=== PATIENT | female | born 2000 | race Caucasian/White ===

== ENCOUNTER 2020-10-05 06:42 | Outpatient (REF) | payer BC, SELFPAY | END 2020-10-05 06:43 | disposition home or self-care (01) | LOC: HO.LAB 06:42 | PROVIDERS: Visit Provider Internal Medicine | DX: Z20.828 Contact with and (suspected) exposure to other viral communicable diseases (principal) | CPT/HCPCS: C9803; U0003 ==

== ENCOUNTER 2025-04-15 15:36 | Outpatient (AMB) | payer OTHER, SELFPAY ==
--- NOTE | 2025-04-15 15:39 | A.OFFPC_ITS ---
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, insurance need to be verify Monomer Purification Operator Required: No Accompanied by: Self / Same As Patient Allergies cat dander Allergy (Mild, Verified 04/15/25 16:19) hives cefprozil [CEFPROZIL] Allergy (Unknown, Verified 04/15/25 16:19) HIVES Medication List - Last Reconciled 04/15/25 by KENTON Griffin No Known Home Meds Tobacco use date assessed: 04/15/25 Dental Screening Dental Screen Date: 04/15/25 Did you have a dental visit in the last 12 months?: Yes Did you have a dental problem in the last 6 months where you did not have access to dental care?: No Was dental information given to patient?: Patient has dentist HPI 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 She denies experiencing any significant symptoms such as chest pain, shortness of breath, abdominal discomfort, or alterations in bowel habits. It has been several years since her last Pap smear, and she currently does not have a hoistman. A systolic murmur was detected upon examination, but there were no past cardiac concerns. Health Maintenance - Referral for a Pap smear - Recommendation to follow up with a chief crna traffic workforce representative - Echocardiogram ordered due to noted sy stolic murmur - Encourage fasting labs in the near fut ure Social History Review of Systems - Cardiovascular: Denies chest pain, varsha rtness of breath. - Gastrointestinal: Denies abdominal cachorro n, constipation, diarrhea. - Gastrointestinal: Denies blood in stoo l. - Urinary: Denies urinary issues. Physical Exam General: Cooperative, healthy appearing, comfortable, no acute distress and well developed Orientation: Patient oriented x3 Limitations: No limitations Head: Normal to inspection Ears: Hearing grossly normal bilaterally Nose: Normal external nose present Face and sinus: Normal facial exam Eyes: Appearance normal, both eyes and all related structures Neck: Normal visual inspection and Yes full ROM Respiratory: Normal respiratory effort and able to speak in complete sentences. Clear to auscultation bilaterally Cardiovascular: Systolic murmur noted on exam. Normal S1 and S2 GI: Normal to inspection. Soft to palpation and nontender Skin: No rashes or lesions noted Neuro: Patient oriented x3 Extremities: Normal to inspection Results Plan An echocardiogram is ordered to assess the systolic murmur. I recommended that the patient follow up with a hoistman for a Pap smear, given the lapse since her last screening. She is encouraged to complete fasting labs soon for a comprehensive health assessment. Discussion Notes I explained to the patient that the systolic murmur noted during the exam cami nts further investigation, hence the ordering of an echocardiogram. I discussed the importance of keeping up with routine Pap smears and advised her to establish care with a hoistman given the time since her last visit. We discussed the benefits of these screenings and monitoring her overall health. She is informed that fasting labs will provide additional important health assessments. I instructed her to return in one year for a follow-up and provided anticipatory guidance regarding her healthcare routine. Patient Instructions - Schedule and complete the echocardiogr am. - Find and visit a hoistman for a Pa p smear. - Complete fasting labs soon. - Return for a follow-up visit in one ye ar. - Seek immediate care if you develop any new symptoms or concerns. [facility] Surgical History S/P wisdom tooth extraction S/P ACL repair Family History Mother CKD (chronic kidney disease) HTN (hypertension) Father No problems noted. Social History Housing: House Alcohol intake: current Alcohol intake frequency: holidays/special occasions only Patient Tobacco Use Status: Never used Tobacco e-Cigarette/Vaping Use: Never Used service: No Current occupational status: employed Current occupation: [employer] - [employer] Current occupational exposures/hazards: No Cognitive needs: No Hearing needs: No Vision needs: No Questionnaire PHQ-9 Over the last 2 weeks, how often have you been bothered by any of the following problems? 1. Little interest or pleasure in doing things: not at all 2. Feeling down, depressed, or hopeless: not at all 3. Trouble falling or staying asleep, or sleeping too much: not at all 4. Feeling tired or having little energy: not at all 5. Poor appetite or overeating: not at all 6. Feeling bad about yourself - or that you are a failure or have let yourself or your family down: not at all 7. Trouble concentrating on things, such as reading the newspaper or watching television: not at all 8. Moving or speaking so slowly that other people could have noticed. Or the opposite - being so fidgety or restless that you have been moving around a lot more than usual: not at all 9. Thoughts that you would be better off or of hurting yourself in some way: not at all Total score: 0 Depression Screening Interpretation: Negative Depression Screening Done: Yes 73389 - PHQ-9 Billing: Yes Source: Developed by Drs. Nacho Perez, Tiffany Duarte, Javier Gage and colleagues, with an educational feliberto from [employer]. Thrive Questionnaire Date Thrive assessed: 04/15/25 I am a: Patient What is your living situation today?: I have a steady place to live Within the past 12 months, did the food you bought not last and you didn't have the money to get more?: Never true Within the past 12 months, did you worry whether your food would run out before you got money to buy more?: Never true Do you have trouble paying for medicines?: No Do you have trouble getting transportation to medical appointments?: No Do you have trouble paying your heating and electricity bill?: No Do you have trouble taking care of your child, family member or friend?: No Do you have trouble with day-to-day activities such as bathing, preparing meals, shopping, managing finances, etc.?: No Are you currently unemployed and looking for a job?: No Are you interested in more education?: No Please select the resources that you would like help with: None Currently or been in a relationship where the following occur: No concerns reported THRIVE Score: 0 AUDIT C Alcohol Use Questionnaire (AUDIT-C) 1. How often do you have a drink containing alcohol?: Monthly or less 2. How many drinks containing alcohol do you have on a typical day when you are drinking?: 1 or 2 3. How often do you have six or more drinks on one occasion?: Never Total Score: 1 Score Reviewed/Action Taken: Yes CHAI-7 AMB Questionnaire CHAI-7 Date CHAI - 7 assessed: 04/15/25 Feeling nervous, anxious, or on edge: 0 = Not at all Not being able to stop or control worryin = Not at all Worrying too much about different things: 0 = Not at all Trouble relaxin = Not at all Being so restless that it is hard to sit still: 0 = Not at all Becoming easily annoyed or irritable: 0 = Not at all Feeling afraid as if something awful might happen: 0 = Not at all Total CHAI-7 score (0-4 normal; 5-9 mild; 10-14 moderate; 15-21 severe): 0 Source: Developed by Drs. Nacho Perez, Tiffany Duarte, Javier Gage and colleagues, with an educational feliberto from [employer]. CHAI-7 Assessment Billing CHAI-7 Assessment Tool: CHAI-7 Assessment 43406 Physical exam (Primary Care) Vital Signs: Last Vital Signs Temp 98.5 F 04/15/25 15:56 Pulse 63 04/15/25 15:56 BP 118/57 L 04/15/25 15:56 Pulse Ox 98 04/15/25 15:56 BMI result Body Mass Index 31.3 Tobacco/Smoking Status: Tobacco use Status Tobacco use date assessed 04/15/25 04/15/25 16:04 Patient Tobacco Use Status Never used Tobacco 04/15/25 16:04 e-Cigarette/Vaping Use Never Used 04/15/25 16:04 PHQ-9: PHQ-9 Score PHQ-9: Total score 0 04/15/25 16:04 Depression Screening Interpretation: Negative Thrive Assessment: Date of Thrive Assessment Date Thrive assessed 04/15/25 04/15/25 16:04 Currently or been in a relationship where the following occur: No concerns reported Coding Level of Care Code New Pt Prev Care 18-39yr(06178 Diagnoses Physical exam Z00.00 Screening for colon cancer Z12.11 Systolic murmur R01.1 Additional Codes CHAI-7 Assessment Billing - CHAI-7 Assessment Tool: CHAI-7 Assessment 63358 ([id number]) PHQ-9 - 99187 - PHQ-9 Billing: Yes ([id number]) Assessment & Plan Assessment & Plan (1) Physical exam: Code(s): Z00.00 - Encounter for general adult medical examination without abnormal findings Category: Medical (2) Screening for colon cancer: Code(s): Z12.11 - Encounter for screening for malignant neoplasm of colon Category: Medical (3) Systolic murmur: Code(s): R01.1 - Cardiac murmur, unspecified Category: Medical Plan . Orders: Orders UA CC w/rflx Micro + Cult Today Z00.00 - Encounter for general adult medical examination without abnormal findings Lipid Panel Today Z00.00 - Encounter for general adult medical examination without abnormal findings Complete Blood Count Auto Diff Today Z00.00 - Encounter for general adult medical examination without abnormal findings Comprehensive [place]. Panel Fast Today Z00.00 - Encounter for general adult medical examination without abnormal findings TSH reflex Free T4 Today Z00.00 - Encounter for general adult medical examination without abnormal findings CA echo transthoracic complete Today R01.1 - Cardiac murmur, unspecified Referrals TRACKLESS TROLLEY DRIVER Referral Z12.11 - Encounter for screening for malignant neoplasm of colon
[2025-04-15 15:56] VITALS: BP 118/57; PULSE 63; TEMP 36.9; O2SAT 98; BMI 31.3
--- OUTSIDE RECORDS SUMMARY | 2025-04-15 16:35 | XMS_ITS ---
Author Organization [facility] Address [address] [place] [address] Care Team Providers Care Core Drill Operator Helper Name Role Phone Dana Scott MD Primary Care Provider Campos Mora [phone] REASON FOR VISIT CX appt Problems No Known Problems Encounters Encounter Location Date Provider Diagnosis [facility] [address] [place] [address] 05/22/2024 Campos Pierre Plan Of Treatment No Information Progress Notes * Kin JOYA: 9 (24 yo F)Acc No.[id number]:05/22/2024 Patient:?Chaya Joya :2000???Age:24 Y???Sex:Female Address:[address] [place] [address] * true * Date:? Generated for Yvonne ward/Dallin/eTransmitting on:?04/15/2025 04:35 PM EDT
--- OUTSIDE RECORDS SUMMARY | 2025-04-15 16:35 | XMS_ITS | Encounter Summary ---
Author Organization [facility] Address [address] [place] [address] Phone Care Team Providers Care Epic Cadence Analyst Name Role Phone Unavailable Primary Care Provider Unavailabl e Encounter Details Date Type Department Care Team (Late st Contact Info) Description 04/17/2017 Documentation [facility] [place] Family Medicine [facility] [place] [id number] Family Medicine, Physician [facility] [place] [address] Social History Tobacco Use Types Packs/Day Years Used Date Smoking Tobacco: Never Comments:Never smoker Comments Unknown Sex and Gender Information Value Date Recorded Sex Assigned at Not on file Legal Sex Female 4:54 PM EDT Gender Identity Not on file Sexual Orientation Not on file documented as of this encounter Plan of Treatment Not on file documented as of this encounter Visit Diagnoses Not on filedocumented in this encounter
--- OUTSIDE RECORDS SUMMARY | 2025-04-15 16:35 | XMS_ITS | Encounter Summary ---
Author Organization [facility] Address [address] [place] [address] Phone Care Team Providers Care Group President Name Role Phone Unavailable Primary Care Provider Unavailabl e Encounter Details Date Type Department Care Team (Late st Contact Info) Description 07/13/2017 Conversion Encounter [facility] - [address] [address] Social History Tobacco Use Types Packs/Day Years [...]
--- OUTSIDE RECORDS SUMMARY | 2025-04-15 16:35 | XMS_ITS | Encounter Summary ---
Author Organization [facility] Address [address] [place] [address] Phone Care Team Providers Care Paperhanger Assistant Name Role Phone Unavailable Primary Care Provider Unavailabl e Reason for Visit * Reason Comments Med Refill Encounter Details Date Type Department Care Team (Late st Contact Info) Description 10/18/2017 Refill [facility] [place] [address] [place] [address] Samara Johnson MD [address] [place] [address] Counseling for control, oral contraceptives Social History Tobacco Use Types Packs/Day Years Used Date Smoking Tobacco: Never Smokeless Tobacco: Never Comments:Never smoker Alcohol Use Standard Drinks/Week Comments No 0 (1 standard drink = 0.6 oz pur e alcohol) Comments Unknown Sex and Gender Information Value Date Recorded Sex Assigned at Not on file Legal Sex Female 4:54 PM EDT Gender Identity Not on file Sexual Orientation Not on file documented as of this encounter Miscellaneous Notes * Telephone Encounter - Jessica Miguel LPN - 10/18/2017 9:36 AM EST Pharm fax refill request OCP. EH documented in this encounter Plan of Treatment Not on file documented as of this encounter Visit Diagnoses Diagnosis Counseling for control, oral contraceptives General counseling for prescription of oral contraceptives documented in this encounter
--- OUTSIDE RECORDS SUMMARY | 2025-04-15 16:35 | XMS_ITS | Patient Health Record ---
Author Organization [facility] Address [address] [place] [address] Care Team Providers Care Replenishment Specialist Name Role Phone Dana Scott MD Primary Care Provider Campos Mora Unavailable [phone] Allergies Allergen (clinical drug ingredient) Drug/Non Drug Allergy documented on EMR Reaction Allergy Type Onset Date Status cefprozil Cefprozil vomit, hives Drug Allergy Acti ve Reason For Referral No Information Medications Medication SIG (Take, Route, Frequency, Duration) Notes Start Date End Date Status Physical Therapy . . . 2-3x/week for 3- 4 weeks 03/21/2024 Not-Taking Nabumetone 750 MG 1 tablet Orally ONCE A DAY WITH FOOD for 30 day(s) 05/02/2024 Active Night Splint AFO - L1930 as directed 03/21/2024 Not-Taking Physical Therapy . . . 2-3x/week for 3- 4 weeks 11/30/2020 Not-Taking Diclofenac Sodium 50 MG 1 tablet Orally Twice a day for 30 day(s) 11/30/2020 Not-Taking Tri-Sprintec 0.18/0.215/0.25 MG-35 MCG 1 tablet Orally Once a day for 28 day(s) Not-Taking Social History Tobacco Use: Social History Observation Description Date Details (start date - stop date) Never Smoker NA - NA Tobacco Use/Smoking Question Answer Notes Are you a: nonsmoker Additional Findings: Tobacco Non-User Aggressive non-smoker Alcohol Screen Question Answer Notes Did you have a drink containing alcohol in the p ast year? Yes Points 0 Interpretation Negative Tobacco use other than smoking: Question Answer Notes Are you an other tobacco user? No Problems No Known Problems Vital Signs Height 5ft5in in 05/02/2024 Weight 190 lbs 05/02/2024 BMI 31.61 kg/m2 05/02/2024 Encounters Encounter Location Date Provider Diagnosis [facility] [address] 05/02/2024 Campos Pierre Plantar fascial fibromatosis M72.2 ; Pain in left foot M79.672 and Pain in right foot M79.[address] [address] 05/02/2024 Campos Pierre [address] [address] 05/22/2024 Campos Pierre Assessments Encounter Date Diagnosis (ICD Code) Assessment Notes Treatment Notes Treatment Clinical Notes Section Notes 05/02/2024 Plantar fascial fibromatosis (ICD-10 - M72.2) 05/02/2024 Pain in left foot (ICD-10 - M79.672) 05/02/2024 Pain in right foot (ICD-10 - M79.671) Plan Of Treatment Pending Test Test Name Order Date X ray : Foot, left 2V 01/21/2013 X ray : Foot, right 2V 01/21/2013 X ray : Foot, left 3V 03/21/2024 X ray : Foot, right 3V 03/21/2024 Insurance Providers Payer Name Payer Address Payer Phone Subscriber Number Group Number Insured Name Patient Relationship to Insured Coverage Start Date Coverage End Date [facility] [address] [place] [address] [phone] [id number] Chaya Joya Self - patient is the insured Medical (General) History Medical History History ICD Code asthma Arthritis Broken bones covid-19 Joint implants/screws Surgical History Surgery Date(Month/Year) ACL MENISCUS RIGHT KNEE 08/2013
--- OUTSIDE RECORDS SUMMARY | 2025-04-15 16:35 | XMS_ITS ---
Author Organization [facility] Address [address] [place] [address] Care Team Providers Care Stove Cleaner Name Role Phone Dana Scott MD Primary Care Provider Campos Mora [phone] REASON FOR VISIT DME Problems No Known Problems Encounters Encounter Location Date Provider Diagnosis [facility] [address] [place] [address] 05/02/2024 Campos Pierre Plan Of Treatment No Information Progress Notes * Chaya JOYADOB: 9 (24 yo F)Acc No.[id number]:05/02/2024 Patient:?Chaya Joya :2000???Age:24 Y???Sex:Female Address:[address] [place] [address] * true * Date:? Generated for Yvonne ward/Dallin/eTransmitting on:?04/15/2025 04:35 PM EDT
--- OUTSIDE RECORDS SUMMARY | 2025-04-15 16:35 | XMS_ITS | Encounter Summary ---
Author Organization [facility] Address [address] [place] [address] Phone Care Team Providers Care Citrus Fruit Packer Name Role Phone Unavailable Primary Care Provider Unavailabl e Encounter Details Date Type Department Care Team (Late st Contact Info) Description 07/18/2017 Documentation [facility] Family Medicine [facility] [place], [place] [phone] Family Medicine, Physician [facility] [place] [address] Social History Tobacco Use Types Packs/Day Years [...]
--- OUTSIDE RECORDS SUMMARY | 2025-04-15 16:35 | XMS_ITS | Encounter Summary ---
Author Organization [facility] Address [address] [place] [address] Phone Care Team Providers Care Band Bias Machine Operator Name Role Phone Unavailable Primary Care Provider Unavailabl e Encounter Details Date Type Department Care Team (Late st Contact Info) Description 09/12/2014 Documentation [facility] [place] [facility] Family Medicine [facility] [place] [address] Family Medicine, Physician [facility] [place] [address] Social History Tobacco Use Types Packs/Day Years Used Date Smoking Tobacco: Never Assessed Comments Unknown Sex and Gender Information Value Date Recorded Sex Assigned at Not on file Legal Sex Female 4:54 PM EDT Gender Identity Not on file Sexual Orientation Not on file documented as of this encounter Plan of Treatment Not on file documented as of this encounter Visit Diagnoses Not on filedocumented in this encounter
--- OUTSIDE RECORDS SUMMARY | 2025-04-15 16:35 | XMS_ITS | Clinical Summary ---
Author Organization [facility] Address [address] [place] [phone] Phone Care Team Providers Care Executive Administrative Assistant Name Role Phone Unavailable Primary Care Provider Unavailabl e Allergies Active Allergy Reactions Criticality Noted Date Comments Cefprozil Hives Medications Tri-Sprintec 0.18/0.215/0.25 MG-35 MCG per tabletIndications: Encounter for surveillance of contraceptive pills TAKE 1 TABLET BY MOUTH DAILY 84 tablet 1 Active Active Problems Problem Noted Date Diagnosed Date Lab test positive for detection of COVID-19 viru s 11/04/2020 Overview (11/04/2020): 10/11/20 - seen for clearance for soccer at [employer]. Sent for EKG Counseling for control, oral contraceptive s 07/29/2017 Resolved Problems Problem Noted Date Diagnosed Date Resolved Date Acne vulgaris 07/31/2018 05/25/2020 Overview (07/31/2018): Followed by Derm - on Clindamycin and Adapalene Immunizations Immunization Administration Dates Next Due DTaP 5 02/12/2003, 1,1999,07/27,1999 H1N1 11/26/2009 HPV Vaccine 9 Valent 08/09/2016,07/21/2015 HPV, Quadrivalent 07/14/2014 Hep A, ped/adol 07/14/2014,06/07/2011 Hep B, ped/adol 1999,1999,1999 Hib (PRP-T) 12/15/2000, 9,1999,04/27 IPV 02/12/2003, 0,1999,04/27 Influenza Split 10/13/2011,10/16/2010 Influenza, injectable, quadr ivalent, preservative free 11/04/2020,11/15/2019,07/29/2017,08/09,07/21/2015 Influenza, injectable, trivalent 11/26/2009 MMR 02/12/2003,02/08/2000 Meningococcal B Trumenba 05/25/2020,07/31/2018 Meningococcal Conj (Menactra) MCV4P 08/09/2016,0 06/02/2010 Pneumococcal Conjugate 02/20/2001,12/15/2000 Td (adult) (MBL), 2 Lf tetan us toxoid, PF, adsorbed 03/06/2018 Tdap 06/02/2010 Varicella 05/16/2008,02/08/2000 Family History Medical History Relation Name Comments Breast cancer Father's Sister Migraines Mother Breast cancer Mother's Sister Diabetes Other 2 both sides ADD / ADHD Sister 1 Asthma Sister 1 ADD / ADHD Sister 2 Asthma Sister 2 Relation Name Status Comments Father Alive Father: Peridon jeannette disease Father's Sister Maternal Grandmother Alive Mother Alive Mother's Sister Other 1 No family histo ry of Dental caries, No family history of Deafness, No family history of Heart disease, No family history of Obesity, Family history of Cancer, breast, No family history of Seizure disorder, No family history of Hyperlipidemia, Family history of Migraines, No family history of CVA (Stroke), No family history of Thrombophilia, No family history of Sudden /CO under age 55, No family history of Developmental dislocation of hip, Family history of Diabetes mellitus Other 2 both sides Alive Paternal Grandmother Alive Sister 1 Alive Sister 2 Alive Social History Tobacco Use Types Packs/Day Years Used Date Smoking Tobacco: Never Smokeless Tobacco: Never Tobacco Cessation:Counseling Given: Yes Comments:Never smoker Alcohol Use Standard Drinks/Week Comments No 0 (1 standard drink = 0.6 oz pur e alcohol) Hunger/Food Answer Date Recorded In the last 12 months, did y ou or your family ever eat less than you felt you should because there wasn't enough money for food? No 05/25/2020 Stable Housing Answer Date Recorded Are you worried that in the next 2 months you may not have stable housing? No 05/25/2020 Transportation Concerns Answer Date Rec orded In the last 12 months, have you or your family ever had to go without healthcare because you didn't have a way to get there? No 05/25/2020 Hazards in Home Answer Date Recorded Think about the place you li ve. Do you have problems with any of the following? Pests (mice or roaches), mold, no/not working smoke detectors, water leaks, no window guards. No 2019 Financing Utilities Answer Date Recorde d In the last 12 months, has t he electric, gas, oil, or water company threatened to shut off your services in your home? No 05/25/2020 Safety at Home Answer Date Recorded Are you or your family worried about feeling saf e in your home? No 05/25/2020 Outside Support Answer Date Recorded Do you feel that you need mo re support from other people or programs to help you care for yourself or your family? No 05/25/2020 Understanding Health Concerns Answer Da te Recorded Do you need help understandi ng your or your child's healthcare needs (diagnosis, medications, plan, etc.)? No 05/25/2020 Financing Health Concerns Answer Date R ecorded In the last 12 months, was t here a time when your child needed to see a doctor or get medications or supplies but could not because of cost? No 05/25/2020 Missing School or Work Answer Date Gerald rded Did you or your child miss s chool or work because of a health problem that could have been avoided? No 05/25/2020 Comments No Sex and Gender Information Value Date Recorded Sex Assigned at Not on file Legal Sex Female 4:54 PM EDT Gender Identity Not on file Sexual Orientation Not on file Last Filed Vital Signs Vital Sign Reading Time Taken Comments Blood Pressure 115/67 11/04/2020 9:25 AM EST Pulse 68 11/04/2020 9:25 AM EST Temperature 36.4 ??C (97.6 ??F) 11/04/2020 9:25 AM ES T Respiratory Rate - - Oxygen Saturation 98% 11/25/2011 12:00 AM EST Inhaled Oxygen Concentration - - Weight 84.4 kg (186 lb) 11/04/2020 9:25 AM EST Height 165.7 cm (5' 5.25 ) 05/25/2020 8:58 AM ED T Body Mass Index 30.72 05/25/2020 8:58 AM EDT Plan of Treatment Health Maintenance Due Date Last Done Comments Influenza Vaccines (#1) 2024 11/04/20, 11/15/2019, 07/29/2017, Additional history exists COVID-19 Vaccine (1 - 2023-2 5 season) 2024 DTaP,Tdap,and Td Vaccines (8 - Td or Tdap) 03/06/2028 03/06/2018, 06/02/2010, 02/12/2003, Additional history exists Hepatitis B Vaccines Completed 1999, 1999, 1999 HIB Vaccines Completed 12/15/2000, 01/1999, 1999, Additional history exists Pneumococcal Vaccine Completed 02/20/2001, 12/15/19 01 IPV Vaccines Completed 02/12/2003, 01/25, 1999, Additional history exists MMR Vaccines Completed 02/12/2003, 02/08/2000 Varicella Vaccines Completed 05/16/2008, 02/08/2000 Hepatitis A Vaccines Completed 07/14/2014, 06/07/20 11 HPV Vaccines Completed 08/09/2016, 06/28, 07/14/2014 Meningococcal Vaccine Completed 08/09/2016, 010 Men B Vaccine Completed 05/25/2020, 07/31/2018 Procedures * Due to [facility] law, this organization might not be sharing sensitive test results. Procedure Name Priority Date/Time Associated Diagnosis Comments CHLAMYDIA AND GONORRHEA, AMPLIFIED Routine 05/25/2020 9:10 AM EDT Screening examination for bacterial and spirochetal disease from Last 3 Months or Most Recently Relevant to Health Maintenance Results * Due to [place] [employer] law, this organization might not be sharing sensitive test results. * Chlamydia and Gonorrhoea, Amplified (05/25/2020 9:10 AM EDT) Chlamydia Trachomatis, DNA Probe NEGATIVE (NEG) [facility] Comment: No Chlamydia Trachomatis RNA detected in this patient's sample ? (REFERENCE RANGE/NORMAL VALUE: NOT DETECTED) ? Note: This test uses chemist biological- mediated amplification method to detect rRNA from C. Trachomatis URINE GC AMP PROBE NEGATIVE (NEG) [facility] Comment: No Neisseria Gonorrhoeae RNA detected in this patient's sample ? (REFERENCE RANGE/NORMAL VALUE: NOT DETECTED) ? NOTE: This test uses chemist biological-mediated amplification method to detect rRNA from N.Gonorrhoeae. A negative result does not preclude infection. In the case of a negative urine result, testing of an endocervical(female) or urethral (male) specimen is recommended if there is high clinical suspicion of infection. Due to very high sensitivity of Nucleic Acid Amplification Test, false positive results may occur. Therefore, specimen handling is extremely important. In patients in whom the disease is unlikely, additional sample for testing should be considered after an initial positive result. The performance characteristics of this test have not been evaluated in children. The Aptima Combo2 assay is not intended for the evaluation of suspected sexual abuse or for other medico-legal indications. The ordering provider should assess if the patient had consensual sex without risk of sexual abuse. Consult the [facility] if needed. Contact phone number . Therapeutic failure or success cannot be determined with the Aptima Combo2 assay since nucleic acid may persist following appropriate antimicrobial therapy. The Centers for Disease Control and Prevention (CDC) recommends confirmatory retesting using culture or a different nucleic acid amplification test when positive results occur, if indicated. Testing performed or reported by [facility], a Service of [facility], [address] [facility] [place] [address] Gautam Mendiola MD, Dbas Urine 05/25/2020 9:10 AM EDT 05/25/2020 8:09 PM EDT us Samara Johnson MD LAB MICROBIOLOGY - GENERAL ORDERABLES Final Result [facility] from Last 3 Months or Most Recently Relevant to Health Maintenance
--- OUTSIDE RECORDS SUMMARY | 2025-04-15 16:36 | XMS_ITS ---
Author Organization [facility] Address [address] [place] [address] Care Team Providers Care Fire Prevention Officer Name Role Phone Dana Scott MD Primary Care Provider Campos Mora [phone] Problems No Known Problems Encounters Encounter Location Date Provider Diagnosis [address] [address] 07/17/2024 Campos Pierre Plan Of Treatment No Information Progress Notes * Chaya JOYADOB: 9 (25 yo F)Acc No.[id number]:07/17/2024 Progress Note Patient:Adrian HARRISina Provider:Sandra Pierre DPM :2000???Age:24 Y???Sex:Female D ate:07/17/2024 Address:[address] [place], [place] [id number] Pcp:Dana Scott MD Subjective: * Chief Complaints: * ??? * Medical History:? Objective: * Vitals:? Assessment: Plan: * Treatment: * Images: * The named appointment provid er may or may not be the originator of this progress note, and it is not deemed complete until electronically signed by the appointment provider. Sign off status: Pending * Provider:Sandra Pierre DPM Date:? 024 Generated for Yvonne ward/Dallin/eTransmitting on:?04/15/2025 04:35 PM EDT
== END 2025-04-15 16:28 | disposition home or self-care (01) ==
LOC: HO.HMCC 15:37
PROVIDERS: PCP Nurse Practitioner Family; Visit Provider Nurse Practitioner Family
DX: Z00.00 Encounter for general adult medical examination without abnormal findings (principal); Z12.11 Encounter for screening for malignant neoplasm of colon; R01.1 Cardiac murmur, unspecified

== ENCOUNTER → 2025-04-15 15:36 | Outpatient (BNVA) | payer OTHER, SELFPAY | PROVIDERS: PCP Nurse Practitioner Family; Visit Provider Nurse Practitioner Family | DX: Z00.00 Encounter for general adult medical examination without abnormal findings (principal); R07.9 Chest pain, unspecified; R06.02 Shortness of breath; R10.9 Unspecified abdominal pain; R01.1 Cardiac murmur, unspecified | CPT/HCPCS: 96127; 99385 ==

== ENCOUNTER 2025-04-23 11:15 | Outpatient (REF) | payer OTHER, SELFPAY ==
[2025-04-23 11:31] LABS: MANUAL DIFF FLAG NO
[2025-04-23 11:52] LABS: Basophils Absolute Auto 0.1 X10*3/uL (0.0-0.2); Basophils Percent Auto 0.6 % (0-2); Eosinophils Absolute Auto 0.3 X10*3/uL (0.0-0.4); Eosinophils Percent Auto 3.2 % (0-4); Hematocrit 41.4 % (37.0-47.0); Hemoglobin 13.8 g/dl (12.0-16.0); Imm Gran Abs Auto 0.02 X10*3/uL (0.00-0.03); Imm Gran Pct Auto 0.3 % (0.0-0.4); Lymphocytes Absolute Auto 2.2 X10*3/uL (1.2-4.9); Lymphocytes Percent Auto 27.8 % (20-40); Mean Corpuscular HGB Conc 33.3 g/dl (31.0-35.0); Mean Corpuscular Hemoglobin 28.5 pg (27.0-33.0); Mean Corpuscular Volume 85.5 fL (80.0-98.0); Mean Platelet Volume 9.2 fL (9.4-12.3); Monocytes Absolute Auto 0.6 X10*3/uL (0.1-1.2); Monocytes Percent Auto 7.7 % (2-11); Neutrophils Absolute Auto 4.8 x10*3/uL (2.0-8.3); Neutrophils Percent Auto 60.4 % (45-73); Platelet Count 370 X10*3/uL (160-400); Red Blood Count 4.84 X10*6/uL (4.20-5.50); Red Cell Distribution Width 12.4 % (11.0-16.0); White Blood Count 7.9 X10*3/uL (4.8-10.8)
--- OUTSIDE RECORDS SUMMARY | 2025-04-23 12:15 | XMS_ITS | Patient Health Record ---
Author Organization [facility] Address [address] [place] [address] Care Team Providers Care Perinatal Tech Name Role Phone Dana Scott MD Primary Care Provider Campos Mora Unavailable [phone] Allergies Allergen (clinical drug ingredient) Drug/Non Drug [...] 05/02/2024 Encounters Encounter Location Date Provider Diagnosis [facility] [address] 05/02/2024 Campos Pierre Plantar fascial fibromatosis M72.2 ; Pain in left foot M79.672 and Pain in right foot M79.[address] [address] 05/02/2024 Campos Pierre [address] [address] 05/22/2024 Campos Pierre Assessments Encounter Date Diagnosis [...] Insured Coverage Start Date Coverage End Date [facility] [address] [place] [address] [phone] [id number] Chaya Joya Self - patient is the insured Medical (General) History Medical History History ICD Code asthma Arthritis Broken bones covid-19 Joint implants/screws Surgical History Surgery Date(Month/Year) ACL MENISCUS RIGHT KNEE 08/2013
[2025-04-23 12:26] LABS: Appearance Urine Cloudy; Color Urine Yellow; Glucose Urine UA Negative (Negative); Leukocyte Esterase Urine Trace (Negative); Nitrite Urine Negative (Negative); PH 7.5 (5.0-9.0); Specific Gravity - Urine >= 1.030 (1.005-1.025); UMIC TRIGGER UACC YES; Urine Blood Negative (Negative); Urine Ketones Trace mg/dL (Negative); Urine Protein Negative (Neg-Trace)
[2025-04-23 13:11] LABS: Alanine Aminotransferase 22 U/L (0-31); Albumin Level 4.5 g/dL (3.5-5.0); Alkaline Phosphatase 65 U/L (39-117); Anion Gap 9 (12-20); Aspartate Amino Transferase 20 U/L (5-31); Bilirubin Total 1.1 mg/dL (0.0-1.0); Blood Urea Nitrogen 15 mg/dL (9-16); Calcium 9.4 mg/dL (8.4-10.2); Carbon Dioxide 29 mmol/L (22-29); Chloride 104 mmol/L (96-108); Cholesterol 160 mg/dL (<200); Estimated Glomerular Filt Rate > 60; Glucose Fasting 95 mg/dL (60-99); HDL Cholesterol 40 mg/dL (>40); LDL Cholesterol Calculated 108 mg/dL (<100); Potassium 4.2 mmol/L (3.3-5.1); Sodium 138 mmol/L (135-145); Total Protein 7.1 g/dL (6.5-8.0); Triglycerides 63 mg/dL (<150)
[2025-04-23 13:13] LABS: Bacteria Urine 3+ (None Seen); Hyaline Casts Urine 0-2 /LPF (0-2); RBC Urine 0-2 /HPF (0-2); WBC Urine 0-5 /HPF (0-5)
[2025-04-23 13:18] LABS: TSH reflex Free T4 0.74 uIU/mL (0.32-4.0)
== END 2025-04-23 11:16 | disposition home or self-care (01) ==
LOC: HO.LAB 11:15
PROVIDERS: PCP Nurse Practitioner Family; Visit Provider Nurse Practitioner Family
DX: Z00.00 Encounter for general adult medical examination without abnormal findings (principal)
CPT/HCPCS: 36415; 80053; 80061; 81001; 81003; 84443; 85025

== ENCOUNTER → 2025-05-14 08:01 | Outpatient (REF) | payer OTHER, SELFPAY ==
--- NOTE | 2025-05-14 08:04 | CA_ITS ---
Transthoracic Echocardiogram Patient (Last, First, Middle): Chaya Joya, Gender: Female Date of : 2000 Age: 25 Procedure Date: 05/14/2025 Procedure Type: Transthoracic Echocardiogram Location: OP Height: 167.64 cm Weight: 86.18 kg BSA: 1.96 m2 Heart Rate: bpm BP: 116 / 70 mmHg Geological Aide: CP/RC Referring MD: Kevin Gold [facility] Emt I/99: Art Morse MD Symptoms: R01.1 - Cardiac murmur, unspecified Study Quality: Adequate ECG Rhythm: Sinus Conclusions: - Normal study Findings Left Ventricle Normal left ventricular size, thickness, and systolic function. The visually estimated ejection fraction is between 60-65%. Spectral Doppler is indicative of a normal filling pattern. Right Ventricle Normal right ventricular cavity size and systolic function. Atria Both atria are normal in size. There is no evidence of interatrial shunt. Aortic Valve Normal aortic valve structure and function. There is no aortic valve stenosis. There is no aortic valve regurgitation. Mitral Valve Normal mitral valve structure and function. There is trace mitral valve regurgitation. There is no mitral valve stenosis. Pulmonic Valve The pulmonic valve is likely normal. Tricuspid Valve Normal tricuspid valve structure. There is trace tricuspid valve regurgitation. The right ventricular systolic pressure is normal. The right ventricular systolic pressure is 12 mmHg. Normal right atrial pressure. There is no evidence of pulmonary hypertension. Great Vessels All visible segments of the aorta are normal in size. The pulmonary artery was not well visualized. Venous The inferior vena cava is normal in size and collapses greater than 50% with inspiration. Pericardium/Pleural There is no evidence of pericardial effusion. Prior Study Comparison No prior study available for comparison. Measurements 2D Linear Measurements IVSd: 1.04 0.6-0.9/0.6-1.0 cm LVIDd: 4.16 3.9-5.3/4.2-5.9 cm LVIDd Index: 2.12 2.4-3.2/2.2-3.1 cm/m2 LVIDs: 2.69 2.0-3.6 cm LVPWd: 0.74 0.7-1.1 cm LA Diam: 3.50 2.7-3.8/3.0-4.0 cm LAIDs Index: 1.79 1.5-2.3 cm/m2 LV Mass: 143.32 67-162/88-224 g LV Mass Index: 73.12 43-95/49-115 g/m2 LVOT Diam: 2.00 3.0+(-)1.3 cm 2D Systolic Function EF 4C: 61.00 >55% EF 2C: 69.40 >55% EF BiP: 64.10 >55% Mitral Valve MV Pk E: 1.00 MV PK A: 0.71 MV Decel Time: 202.00 E/A: 1.40 E'Lateral: 14.70 E'Medial: 9.68 E/E' Med: 10.30 E/E' Lat: 6.80 PHT: 59.00 MVA PHT: 3.73 Decel Brule: 4.97 Aortic Valve AoV Pk Antonio: 1.36 AoV Mn Antonio: 0.92 AoV VTI: 0.33 AoV Pk Grad: 7.00 Aov Mn Grad: 4.00 ETHAN Cont.VTI: 2.31 LVOT LVOT Pk Antonio: 1.23 LVOT Mn Antonio: 0.74 LVOT VTI: 0.24 LVOT Pk Grad: 6.00 LVOT Mn Grad: 3.00 LVOT Diam: 2.00 LVOT Area: 3.14 Diastolic Function MV Pk E: 1.00 MV Pk A: 0.71 E/A: 1.40 E'Medial: 9.68 E/E' Med: 10.30 E' Laterial: 14.70 E/E' Lat: 6.80 Right Ventricle TAPSE (mm): 24.40 TVS' Antonio: 12.20 Tricuspid Valve TR Pk Antonio: 1.52 TR Pk Grad: 9.00 RA Press: 3.00 RVSP: 12.00 Great Vessels Aorta Sinus of Valsalva: 2.50 2.0-3.5 cm Ao Asc: 2.30 2.1-3.4 cm Ao Arch: 2.00 Updated in Other Vendor System with Status of Final Art Morse MD electronically signed on 05/14/2025 1:41:49 PM with status of Final
--- OUTSIDE RECORDS SUMMARY | 2025-05-14 08:13 | XMS_ITS | Patient Health Record ---
Author Organization [facility] Address [address] [place] [address] Care Team Providers Care Power Generation Turbine Room Operator Name Role Phone Dana Scott MD Primary Care Provider Campos Mora Unavailable [phone] Allergies Allergen (clinical drug ingredient) Drug/Non Drug [...] tobacco user? No Problems No Known Problems Encounters Encounter Location Date Provider Diagnosis [facility] [address] [place] [address] 05/22/2024 Campos Pierre Plan Of Treatment Pending Test Test Name Order Date X ray : Foot, left 2V 01/21/2013 X ray : Foot, right 2V 01/21/2013 X ray : Foot, left 3V 03/21/2024 X ray : Foot, right 3V 03/21/2024 Insurance Providers Payer Name Payer Address Payer Phone Subscriber Number Group Number Insured Name Patient Relationship to Insured Coverage Start Date Coverage End Date [facility] [address] [place] [address] [phone] [id number] Chaya Joya Self - patient is the insured Medical (General) History Medical History History ICD Code asthma Arthritis Broken bones covid-19 Joint implants/screws Surgical History Surgery Date(Month/Year) ACL MENISCUS RIGHT KNEE 08/2013
== END ==
LOC: HO.CARD 08:01
PROVIDERS: PCP Nurse Practitioner Family; Visit Provider Nurse Practitioner Family
DX: R01.1 Cardiac murmur, unspecified (principal)
CPT/HCPCS: 93306

== ENCOUNTER → 2025-05-14 08:04 | Outpatient (BNV) | payer OTHER, SELFPAY | PROVIDERS: PCP Nurse Practitioner Family; Visit Provider Internal Medicine Cardiovascular Disease | DX: R01.1 Cardiac murmur, unspecified (principal) | CPT/HCPCS: 93306 ==

== ENCOUNTER 2025-09-01 08:47 | Outpatient (AMB) | payer OTHER, SELFPAY ==
--- OUTSIDE RECORDS SUMMARY | 2024-07-17 04:00 | XMS_ITS ---
Author Organization [facility] Address [address] [place] [address] Care Team Providers Care Call Center Director Name Role Phone Dana Scott MD Primary Care Provider Campos Fregoso [phone] Problems No Known Problems Encounters Encounter Location Date Provider Diagnosis [address] [address] 07/17/2024 Campos Farmer Plan Of Treatment No Information Progress Notes * Chaya JOYADOB: 9 (25 yo F)Acc No.[id number]:07/17/2024 Progress Note Patient: Adrian LANDRUMina Provider: Valeriy Pierre DPM :2000 A ge:24 Y S ex:Female Date:07/17/2024 Address:[address] [place], [place] [id number] Pcp:Dana Scott MD Subjective: * Chief Complaints: [...] 07/17/2024 Generated for Yvonne ward/Dallin/eTransmitting on: 1 09:33 AM EDT
[2025-09-01 09:02] VITALS: BP 110/66; BMI 30.7
--- NOTE | 2025-09-01 09:02 | MHC.OFFVIS ---
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 She had 1 director of assisted living visit at [facility] some years ago and had a Pap smear there she has no director of assisted living concerns. She is not sexually active she gets regular periods every 28 days and she tracks them on an boubacar she likes knowing where she is in her cycle. She uses tampons for menstrual care only the 1st day is uncomfortable and she uses ibuprofen as needed. 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 She does regular exercise and weights and hot yoga for exercise. If she is sexually active she uses condoms the last time she was active was last January but she would like checks just in case she recently had her annual with her primary care provider and everything was fine and all her blood work was good and she had an echocardiogram because of a heart murmur and everything checked out good. She has a family history of breast cancer aunts on both her mother side and father side have had breast cancer and she has already had genetic screening and a discussion about when to start mammograms and the recommendation was to start at age 39 and her genetic screening turned out fine. She eats healthy and takes care of herself. [facility] Surgical History S/P wisdom tooth extraction S/P ACL repair Family History (Updated 09/01/25 @ 09:04 by AMY Mcpherson) Mother CKD (chronic kidney disease) HTN (hypertension) Father No problems noted. Maternal Aunt History of breast cancer Paternal Aunt History of breast cancer Paternal Aunt History of breast cancer Paternal Aunt History of breast cancer Social History Housing: House Alcohol intake: current Alcohol intake frequency: holidays/special occasions only Patient Tobacco Use Status: Never used Tobacco e-Cigarette/Vaping Use: Never Used service: No Current occupational status: employed Current occupation: [employer] - [employer] Current occupational exposures/hazards: No Cognitive needs: No Hearing needs: No Vision needs: No Female Reproductive History Menstrual Age of Menarche: 11 Duration of menses: 3-5 days Date of last menstrual period: 08/24/25 control method: none Total pregnancies: 0 Physical Exam Vital Signs: Last Vital Signs BP 110/66 09/01/25 09:02 BMI result Body Mass Index 30.7 Const General: healthy appearing, comfortable, no acute distress, well developed and alert Nutritional Appearance: average body habitus Orientation/consciousness: patient oriented x3 Limitations: no limitations HEENT Head: Yes normocephalic Neck Neck: Yes normal visual inspection Chest Chest palpation & inspection: normal inspection of the chest Breast/axilla inspection: normal inspection of the breasts and normal inspection of the axillae Breast/axilla palpation: normal palpation of the breasts and normal palpation of the axillae Resp Effort & Inspection: normal respiratory effort GI Inspection: Yes normal to inspection, No Abdominal wall edema and No distended Palpation (GI): Soft to palpation and nontender Other: External exam within normal limits vagina is pink and moist very clear scant mucus nulliparous pink cervix healthy mobile long close thick nontender uterus midposition to anteverted minimally palpable but not enlarged and nontender adnexa nonenlarged nontender very good tone with Kegel. Pap smear done as well as testing for gonorrhea chlamydia trichomoniasis bacterial vaginosis and yeast. General: Yes bladder normal to palpation External Female Exam: normal external appearance and normal appearance of the urethra Speculum Exam - Vagina: normal appearance of the vagina, normal palpation and normal vaginal discharge Speculum Exam - Cervix: normal appearance of the cervix, normal palpation and nontender Bimanual exam- vagina & uterus: normal bimanual exam, normal palpation, uterine size normal, bladder normal to palpation, consistency normal, normal palpation, uterine mobility normal, uterine shape normal, No Cervical tenderness present, non-tender and no cervical motion tenderness Bimanual Exam- Adnexa, other: normal adnexae, no masses, normal and No adnexal tenderness Neuro General: patient oriented x3 Assessment & Plan Assessment & Plan (1) Family history of breast cancer: Comment: Maternal and paternal aunts. Patient has had genetic screening which turned out negative. Says she was told to start mammograms at age 39. BSE discussed. Code(s): Z80.3 - Family history of malignant neoplasm of breast Category: Medical (2) Encounter for screening examination for sexually transmitted disease: Code(s): Z11.3 - Encounter for screening for infections with a predominantly sexual mode of transmission Category: Medical (3) Screening for malignant neoplasm of cervix: Code(s): Z12.4 - Encounter for screening for malignant neoplasm of cervix Category: Medical (4) Family planning counseling: Comment: Use.s condoms, is in good health Code(s): Z30.09 - Encounter for other general counseling and advice on contraception Category: Medical (5) Well woman exam with routine gynecological exam: Code(s): Z01.419 - Encounter for gynecological examination (general) (routine) without abnormal findings Category: Medical Plan -----Discussed in this visit the following: healthy balanced diet, regular and consistent exercise, getting recommended health screens, doing the best she can for her particular health concerns, kegel exercises, pap smear screening and followup recommendations, mammography screening and SBE, normal changes in cycles in her life stage--- .This note is constructed using voice recognition software. While every effort has been made to ensure accuracy, engineering coordinator errors may have been included. Reviewed her personal history and family history she is doing very well with excellent self-care with diet and exercise. She uses condoms when she is active she is aware of her cycle she has had negative screening for her heart murmur she had negative genetic screening because of her family history of breast cancer she has no additional concerns at this time we will see her in 1 year or sooner if necessary. Orders: Orders Bacterial Vaginosis Panel Today Z20.2 - Contact with and (suspected) exposure to infections with a predominantly sexual mode of transmission Pap Smear Today Z01.419 - Encounter for gynecological examination (general) (routine) without abnormal findings CT NG by PCR Vag/Cerv Today Z20.2 - Contact with and (suspected) exposure to infections with a predominantly sexual mode of transmission Coding Level of Care Code New Pt Prev Care 18-39yr([id number] Diagnoses Family history of breast cancer Z80.3 Encounter for screening examination for sexually transmitted disease Z11.3 Screening for malignant neoplasm of cervix Z12.4 Family planning counseling Z30.09 Well woman exam with routine gynecological exam Z01.419
--- OUTSIDE RECORDS SUMMARY | 2025-09-01 09:33 | XMS_ITS | Encounter Summary ---
Author Organization [facility] Address [address] [place] [address] Phone Care Team Providers Care Panama Hat Hydraulic Press Operator Name Role Phone Unavailable Primary Care Provider Unavailabl e Encounter Details Date Type Department Care Team (Late st Contact Info) Description 07/18/2017 Documentation [facility] [place] [facility] [place], [place] [id number] Family Medicine, Physician [facility] [place] [address] Social History Tobacco Use Types Packs/Day Years [...]
--- OUTSIDE RECORDS SUMMARY | 2025-09-01 09:33 | XMS_ITS | Encounter Summary ---
Author Organization [facility] Address [address] [place] [address] Phone Care Team Providers Care Sider Name Role Phone Unavailable Primary Care Provider Unavailabl e Encounter Details Date Type Department Care Team (Late st Contact Info) Description 04/17/2017 Documentation [facility] [place] [facility] [place], [place] [id number] Family Medicine, [place] [address] Social History Tobacco Use Types Packs/Day Years [...]
--- OUTSIDE RECORDS SUMMARY | 2025-09-01 09:33 | XMS_ITS | Encounter Summary ---
Author Organization [facility] Address [address] [place] [address] Phone Care Team Providers Care Leather Toggler Name Role Phone Unavailable Primary Care Provider Unavailabl e Encounter Details Date Type Department Care Team (Late st Contact Info) Description 07/13/2017 Conversion Encounter [facility] - [address] [address] Social History Tobacco Use Types Packs/Day Years [...]
--- OUTSIDE RECORDS SUMMARY | 2025-09-01 09:33 | XMS_ITS | Patient Health Record ---
[facility] Organization [facility] Address [address] [place] [address] Care Team Providers Care Journal Clerk Name Role Phone Dana Scott MD Primary Care Provider Campos Fregoso Unavailable [phone] Allergies Allergen (clinical drug ingredient) Drug/Non Drug Allergy documented on EMR Reaction Allergy Type Onset Date Status cefprozil Cefprozil vomit, hives Drug Allergy Acti ve Reason For Referral No Information Medications Medication SIG (Take, Route, Frequency, Duration) Notes Start Date End Date Status Physical Therapy . . . 2-3x/week; Durat ion: 3-4 weeks 03/21/2024 Not-Taking Nabumetone 750 MG 1 tablet Orally ONCE A DAY WITH FOOD; Duration: 30 day(s) 05/02/2024 Active Night Splint AFO - L1930 as directed 03/21/2024 Not-Taking Physical Therapy . . . 2-3x/week; Durat ion: 3-4 weeks 11/30/2020 Not-Taking Diclofenac Sodium 50 MG 1 tablet Orally Twice a day; Duration: 30 day(s) 11/30/2020 Not-Bon ing Tri-Sprintec 0.18/0.215/0.25 MG-35 MCG 1 tablet Orally Once a day; Duration: 28 day(s) Not-Bon ing Social History Tobacco Use: Social History Observation [...] tobacco user? No Problems No Known Problems Plan Of Treatment Pending Test Test Name Order Date X ray : Foot, left 2V 01/21/2013 X ray : Foot, right 2V 01/21/2013 X ray : Foot, left 3V 03/21/2024 X ray : Foot, right 3V 03/21/2024 Insurance Providers Payer Name Payer Address Payer Phone Subscriber Number Group Number Insured Name Patient Relationship to Insured Coverage Start Date Coverage End Date [facility] [address] [place] [address] [phone] [id number] Chaya Joya Self - patient is the insured Medical (General) History Medical History History ICD Code asthma Arthritis Broken bones covid-19 Joint implants/screws Surgical History Surgery Date(Month/Year) ACL MENISCUS RIGHT KNEE 08/2013
--- OUTSIDE RECORDS SUMMARY | 2025-09-01 09:33 | XMS_ITS | Clinical Summary ---
Author Organization [facility] Address [address] [place] [address] Phone Care Team Providers Care Campus Rep Name Role Phone Unavailable Primary Care Provider [...] - seen for clearance for soccer at [employer]. Sent for EKG Counseling for control, oral [...] 68 11/04/2020 9:25 AM EST Temperature 36.4 C (97.6 F) 11/04/2020 9:25 AM EST Respiratory Rate - - Oxygen Saturation 98% 11/25/2011 12:00 AM EST Inhaled Oxygen Concentration - - Weight 84.4 kg (186 lb) 11/04/2020 9:25 AM EST Height 165.7 cm (5' 5.25 ) 05/25/2020 8:58 AM ED T Body Mass Index 30.72 05/25/2020 8:58 AM EDT Plan of Treatment Health Maintenance Due Date Last Done Comments Influenza Vaccines (#1) 2025 11/04/20, 11/15/2019, 07/29/2017, Additional history exists COVID-19 Vaccine (2024-2 6 season) 2025 DTaP,Tdap,and Td Vaccines (8 - Td or Tdap) 03/06/2028 03/06/2018, 06/02/2010, 02/12/2003, Additional history exists Hepatitis B Vaccines Completed 1999, 1999, 1999 HIB Vaccines Completed 12/15/2000, /0 01/1999, 1999, Additional history exists Pneumococcal Vaccine Completed 02/20/2001, 12/15/19 IPV Vaccines Completed 02/12/2003, 01/25, 1999, Additional history exists MMR Vaccines Completed 02/12/2003, 02/08/2000 Varicella Vaccines Completed 05/16/2008, 02/08/2000 Hepatitis A Vaccines Completed 07/14/2014, 06/07/20 11 HPV Vaccines Completed 08/09/2016, 06/28, 07/14/2014 Meningococcal Vaccine Completed 08/09/2016, 010 Men B Vaccine Completed 05/25/2020, 07/31/2018 Procedures * Due to [place] [employer] law, this organization might not be sharing sensitive test results. Procedure Name Priority Date/Time Associated Diagnosis Comments CHLAMYDIA AND GONORRHEA, AMPLIFIED Routine 05/25/2020 9:10 AM EDT Screening examination for bacterial and spirochetal disease from Last 3 Months or Most Recently Relevant to Health Maintenance Results * Due to [facility] law, this organization might not be sharing sensitive test results. * Chlamydia and Gonorrhoea, Amplified (05/25/2020 9:10 AM EDT) Chlamydia Trachomatis, DNA Probe NEGATIVE (NEG) [facility] Comment: No Chlamydia Trachomatis RNA detected in this patient's sample (REFERENCE RANGE/NORMAL VALUE: NOT DETECTED) Note: This test uses water manager- mediated amplification method to detect rRNA from C. Trachomatis URINE GC AMP PROBE NEGATIVE (NEG) [facility] Comment: No Neisseria Gonorrhoeae RNA detected in this patient's sample (REFERENCE RANGE/NORMAL VALUE: NOT DETECTED) NOTE: This test uses water manager-mediated amplification method to detect rRNA from N.Gonorrhoeae. [...] without risk of sexual abuse. Consult the [facility] if needed. Contact phone number . Therapeutic failure or success cannot be determined with the Aptima Combo2 assay since nucleic acid may persist following appropriate antimicrobial therapy. The Centers for Disease Control and Prevention (CDC) recommends confirmatory retesting using culture or a different nucleic acid amplification test when positive results occur, if indicated. Testing performed or reported by [facility], a Service of [facility], [facility] [place] [address] Gautam Mendiola MD, Cra Officer Urine 05/25/2020 9:10 AM EDT 05/25/2020 8:09 PM EDT us Samara Johnson MD LAB MICROBIOLOGY - GENERAL ORDERABLES Final Result [facility] from Last 3 Months or Most Recently Relevant to Health Maintenance
--- OUTSIDE RECORDS SUMMARY | 2025-09-01 09:33 | XMS_ITS | Encounter Summary ---
Author Organization [facility] Address [address] [place] [address] Phone Care Team Providers Care Dry Paste Supervisor Name Role Phone Unavailable Primary Care Provider Unavailabl e Reason for Visit * Reason Comments Med Refill Encounter Details Date Type Department Care Team (Late st Contact Info) Description 10/18/2017 Refill [facility] [place] [address] [place] [address] Samara Johnson MD [address] [place] [address] Counseling for control, oral contraceptives Social History [...]
--- OUTSIDE RECORDS SUMMARY | 2025-09-01 09:33 | XMS_ITS | Encounter Summary ---
Author Organization [facility] Address [address] [place] [address] Phone Care Team Providers Care Marketing Community Liaison Name Role Phone Unavailable Primary Care Provider Unavailabl e Encounter Details Date Type Department Care Team (Late st Contact Info) Description 09/12/2014 Documentation [facility] [place] [facility] [place] [address] Family Medicine, Physician [facility] [place] [address] Social History Tobacco Use Types Packs/Day Years [...]
== END 2025-09-01 09:49 | disposition home or self-care (01) ==
LOC: HO.HWS 08:47
PROVIDERS: PCP Nurse Practitioner Family; Visit Provider Advanced Practice Midwife
DX: Z01.419 Encounter for gynecological examination (general) (routine) without abnormal findings (principal); Z80.3 Family history of malignant neoplasm of breast; Z11.3 Encounter for screening for infections with a predominantly sexual mode of transmission; Z12.4 Encounter for screening for malignant neoplasm of cervix; Z30.09 Encounter for other general counseling and advice on contraception
CPT/HCPCS: 99385; 99459

== ENCOUNTER 2025-09-01 08:47 | Outpatient (REF) | payer OTHER, SELFPAY ==
[2025-09-01 17:10] LABS: CT PCR NOT DETECTED (Not Detect.); NG PCR NOT DETECTED (Not Detect.)
[2025-09-01 17:16] LABS: Bacterial Vaginosis PCR POSITIVE (Negative); Candida Group PCR NOT DETECTED (Not Detect); Candida glab krusei PCR NOT DETECTED (Not Detect); Trichomonas vaginalis PCR NOT DETECTED (Not Detect)
== END 2025-09-01 08:48 | disposition home or self-care (01) ==
LOC: HO.LAB 08:47
PROVIDERS: PCP Nurse Practitioner Family; Visit Provider Advanced Practice Midwife
DX: Z01.419 Encounter for gynecological examination (general) (routine) without abnormal findings (principal); Z30.09 Encounter for other general counseling and advice on contraception; Z20.2 Contact with and (suspected) exposure to infections with a predominantly sexual mode of transmission; Z80.3 Family history of malignant neoplasm of breast
CPT/HCPCS: 81515; 87491; 87591; 99385

== ENCOUNTER 2025-09-01 09:40 | Outpatient (REF) | payer OTHER, SELFPAY | END 2025-09-01 09:41 | disposition home or self-care (01) | LOC: HO.LNP 09:40 | PROVIDERS: Visit Provider Advanced Practice Midwife | DX: Z01.419 Encounter for gynecological examination (general) (routine) without abnormal findings (principal); Z20.2 Contact with and (suspected) exposure to infections with a predominantly sexual mode of transmission | CPT/HCPCS: 88175 ==

== ENCOUNTER 2025-10-15 08:06 | Outpatient (REF) | payer OTHER, SELFPAY | END 2025-10-15 08:07 | disposition home or self-care (01) | LOC: HO.LNP 08:06 | PROVIDERS: PCP Nurse Practitioner Family; Visit Provider Obstetrics & Gynecology | DX: R87.612 Low grade squamous intraepithelial lesion on cytologic smear of cervix (LGSIL) (principal) | CPT/HCPCS: 57454; 88305; 88341; 88342 ==

== ENCOUNTER 2025-10-15 08:06 | Outpatient (AMB) | payer OTHER, SELFPAY ==
--- OUTSIDE RECORDS SUMMARY | 2024-07-17 03:00 | XMS_ITS ---
Author Organization [facility] Address [address] [place] [address] Care Team Providers Care Event Planner Name Role Phone Dana Scott MD Primary Care Provider Campos Fregoso [phone] Problems No Known Problems Encounters Encounter Location Date Provider Diagnosis [address] [address] 07/17/2024 Campos Farmer Plan Of Treatment No Information Progress Notes * Chaya JOYADOB: 9 (25 yo F)Acc No.[id number]:07/17/2024 Progress Note Patient: Adrian LANDRUMina Provider: Valeriy Pierre DPM :2000 A ge:24 Y S ex:Female Date:07/17/2024 Address:[address] [place], [place] [id number] Pcp:Daan Scott MD Subjective: * Chief Complaints: * * Medical History: Objective: * Vitals: Assessment: Plan: * Treatment: * Images: * The named appointment provid er may or may not be the originator of this progress note, and it is not deemed complete until electronically signed by the appointment provider. Sign off status: Pending * Provider: Valeriy Pierre DPM Date: 0 07/17/2024 Generated for Yvonne ward/Dallin/eTransmitting on: 12/15/2024 03:35 PM EST
--- NOTE | 2025-10-15 08:11 | MHC.OFFVIS ---
Vital Signs 10/15/25 08:13 Height 5 ft 6 in Weight 190 lb BMI 30.7 Intake Visit Reasons: Colposcopy Contact Center Assistant Required: No Information Interpreted: non-clinical & clinical Heel Coverer: Heel Coverer Present (Tricia REYES) Accompanied by: Self / Same As Patient Allergies cat dander Allergy (Mild, Verified 10/15/25 08:13) hives cefprozil (CEFPROZIL) Allergy (Unknown, Verified 10/15/25 08:13) HIVES Is last menstrual period known: Yes Last menstrual period: 09/19/25 HPI Comments Details: Presenting with abnormal Pap smear showing the following: General Category: Epithelial cell abnormality. Adequacy: Endocervical component present. Interpretation: Low grade squamous intraepithelial lesion (LSIL). Shift in vaginal keyla. HPV High Risk: Positive HPV Genotyping 16: Negative HPV Genotyping 18: Negative [facility], [facility] Surgical History S/P wisdom tooth extraction S/P ACL repair Family History Mother CKD (chronic kidney disease) HTN (hypertension) Father No problems noted. Maternal Aunt History of breast cancer Paternal Aunt History of breast cancer Paternal Aunt History of breast cancer Paternal Aunt History of breast cancer Social History Housing: House Alcohol intake: current Alcohol intake frequency: holidays/special occasions only Patient Tobacco Use Status: Never used Tobacco e-Cigarette/Vaping Use: Never Used service: No Current occupational status: employed Current occupation: [employer] - [employer] Current occupational exposures/hazards: No Cognitive needs: No Hearing needs: No Vision needs: No Female Reproductive History Menstrual Age of Menarche: 11 Date of last menstrual period: 09/19/25 Review of Systems Const All systems reviewed & are unremarkable except as noted in HPI and below Reports as per HPI and Reports no additional complaints GI Reports no additional complaints Reports no additional complaints Physical Exam Vital Signs: BMI result Body Mass Index 30.7 Office Procedures Colposcopy Colposcopy: Pre-Procedure Counseling: Before beginning the procedure, I conducted comprehensive counseling with the patient. We thoroughly discussed the procedure itself, including its details, alternatives, and all associated risks. This included but not limited to the following complications such as bleeding, infection, and injury to the vagina, bladder, and vessels, as well as the potential need for transfusion with all its associated risks. Subsequently, the patient sign the consent. Pap smear result: LSIL/HPV positive Urine test in office = Negative Procedure: During the procedure, the following steps were performed: A speculum was inserted, and acetic acid was applied. Colposcopy was conducted, allowing visualization of the transformation zone. Acetowhite lesions were identified at the 6+ 11+ 12+ 3 o'clock position. Cervical biopsies were obtained from the 6+ 11+ 12+ 3 o'clock position, followed by an endocervical curettage (ECC). Vaginoscopy of the upper vagina revealed no evidence of aceto-white lesions. Hemostasis was achieved using Monsel solution, and the patient tolerated the procedure well. Post-Procedure Instructions: The patient was advised to promptly contact the office or the after hours answering service or go to the emergency room if experiencing a temperature exceeding 100.4?F, abdominal pain, nausea/vomiting, or bleeding. Additionally, the patient was instructed to abstain from vaginal intercourse and bathtub use. The patient confirmed understanding of these instructions. Discharge Instructions: The patient was instructed to schedule a follow-up appointment in 2 weeks for further evaluation and management. Please note that this note was generated using a voice recognition program, and errors may have occurred during adjunct psychology instructor. [id number] of cervix including upper vagina with biopsy and ECC Procedure code (CPT) selection complete Assessment & Plan Assessment & Plan (1) LGSIL on Pap smear of cervix: Comment: HPV positive Code(s): R87.612 - Low grade squamous intraepithelial lesion on cytologic smear of cervix (LGSIL) Category: Medical Plan: Discussed with the patient the result of her abnormal pap, its significance, risk of progression, persistence, and regression. the false positive/negative rate of a Pap smear as a screening test in detecting cervical cancer and the indication for a diagnostic test -colposcopy, biopsy, endocervical curettage. The patient verbalized understanding and agreed with the plan, all questions answered. Colposcopy, biopsy /ECC done, see procedure note Orders: Orders AMB Colposcopy Today R87.612 - Low grade squamous intraepithelial lesion on cytologic smear of cervix (LGSIL) Coding Level of Care Code Procedure Only Diagnoses LGSIL on Pap smear of cervix R87.612 CPT Codes Colposcopy - CPT: 03900-Hysvittkg of cervix including upper vagina with biopsy and ECC ([id number])
[2025-10-15 08:13] VITALS: BMI 30.7
--- OUTSIDE RECORDS SUMMARY | 2025-10-15 15:36 | XMS_ITS | Encounter Summary ---
Author Organization [facility] Address [address] [place] [address] Phone Care Team Providers Care Banquet Set Up Person Name Role Phone Unavailable Primary Care Provider Unavailabl e Encounter Details Date Type Department Care Team (Late st Contact Info) Description 04/17/2017 Documentation [facility] [place] [facility] [place], [place] [phone] Family Medicine, Physician [facility] [place] [address] Social History Tobacco Use Types Packs/Day Years [...]
--- OUTSIDE RECORDS SUMMARY | 2025-10-15 15:36 | XMS_ITS | Encounter Summary ---
Author Organization [facility] Address [address] [place] [address] Phone Care Team Providers Care Flour Inspector Name Role Phone Unavailable Primary Care Provider Unavailabl e Encounter Details Date Type Department Care Team (Late st Contact Info) Description 09/12/2014 Documentation [facility] [place] [facility] [place] [address] Family Medicine, Physician [facility] [place] [address] Social History Tobacco Use Types Packs/Day Years [...]
--- OUTSIDE RECORDS SUMMARY | 2025-10-15 15:36 | XMS_ITS | Encounter Summary ---
Author Organization [facility] Address [address] [place] [address] Phone Care Team Providers Care Fire Regulator Name Role Phone Unavailable Primary Care Provider Unavailabl e Encounter Details Date Type Department Care Team (Late st Contact Info) Description 07/13/2017 Conversion Encounter [facility] - [address] [address] Social History Tobacco Use Types Packs/Day Years [...]
--- OUTSIDE RECORDS SUMMARY | 2025-10-15 15:36 | XMS_ITS | Clinical Summary ---
Author Organization [facility] Address [address] [place] [address] Phone Care Team Providers Care Special Agent Group Insurance Name Role Phone Unavailable Primary Care Provider [...] - seen for clearance for soccer at [employer]. Sent for EKG Counseling for control, oral [...] of Thrombophilia, No family history of Sudden /NE under age 55, No family history of [...] Completed 05/25/2020, 07/31/2018 Procedures * Due to [place] [employer] law, this organization might not be sharing sensitive test results. Procedure Name Priority Date/Time Associated Diagnosis Comments CHLAMYDIA AND GONORRHEA, AMPLIFIED Routine 05/25/2020 9:10 AM EDT Screening examination for bacterial and spirochetal disease from Last 3 Months or Most Recently Relevant to Health Maintenance Results * Due to [facility] law, this organization might not be sharing sensitive test results. * Chlamydia and Gonorrhoea, Amplified (05/25/2020 9:10 AM EDT) Chlamydia Trachomatis, DNA Probe NEGATIVE (NEG) [facility] Comment: No Chlamydia Trachomatis RNA detected in this patient's sample (REFERENCE RANGE/NORMAL VALUE: NOT DETECTED) Note: This test uses tire manager- mediated amplification method to detect rRNA from C. Trachomatis URINE GC AMP PROBE NEGATIVE (NEG) [facility] Comment: No Neisseria Gonorrhoeae RNA detected in this patient's sample (REFERENCE RANGE/NORMAL VALUE: NOT DETECTED) NOTE: This test uses tire manager-mediated amplification method to detect rRNA from [...] without risk of sexual abuse. Consult the [facility] if needed. Contact phone number . Therapeutic failure or success cannot be determined with the Aptima Combo2 assay since nucleic acid may persist following appropriate antimicrobial therapy. The Centers for Disease Control and Prevention (CDC) recommends confirmatory retesting using culture or a different nucleic acid amplification test when positive results occur, if indicated. Testing performed or reported by [facility], a Service of [facility], [facility] [place] [address] Gautam Mendiola MD, Electric Cell Tender Urine 05/25/2020 9:10 AM EDT 05/25/2020 8:09 PM EDT us Samara Johnson MD LAB MICROBIOLOGY - GENERAL ORDERABLES Final Result [facility] from Last 3 Months or Most Recently Relevant to Health Maintenance
--- OUTSIDE RECORDS SUMMARY | 2025-10-15 15:36 | XMS_ITS | Encounter Summary ---
Author Organization [facility] Address [address] [place] [address] Phone Care Team Providers Care Inside Horticultural Specialty Grower Name Role Phone Unavailable Primary Care Provider Unavailabl e Reason for Visit * Reason Comments Med Refill Encounter Details Date Type Department Care Team (Late st Contact Info) Description 10/18/2017 Refill [facility] [place] [address] [place] [address] Samara Johnson MD [address] [place] [address] Counseling for control, oral contraceptives Social History [...]
--- OUTSIDE RECORDS SUMMARY | 2025-10-15 15:36 | XMS_ITS | Encounter Summary ---
Author Organization [facility] Address [address] [place] [address] Phone Care Team Providers Care Right Of Way Buyer Name Role Phone Unavailable Primary Care Provider Unavailabl e Encounter Details Date Type Department Care Team (Late st Contact Info) Description 07/18/2017 Documentation [facility] [place] [facility] [place], [place] [id number] Family Medicine, Physician [facility] [place] [address] Social History Tobacco Use Types Packs/Day Years [...]
--- OUTSIDE RECORDS SUMMARY | 2025-10-15 15:36 | XMS_ITS | Patient Health Record ---
Author Organization [facility] Address [address] [place] [address] Care Team Providers Care Powder Cutting Operator Name Role Phone Dana Scott MD Primary Care Provider Campos Fregoso Unavailable [phone] Allergies Allergen (clinical drug ingredient) Drug/Non Drug [...] Insured Coverage Start Date Coverage End Date [facility] [address] [place] [address] [phone] [id number] Chaya Joya Self - patient is the insured Medical (General) History Medical History History ICD Code asthma Arthritis Broken bones covid-19 Joint implants/screws Surgical History Surgery Date(Month/Year) ACL MENISCUS RIGHT KNEE 08/2013
== END 2025-10-15 09:33 | disposition home or self-care (01) ==
LOC: HO.HWS 08:07
PROVIDERS: PCP Nurse Practitioner Family; Visit Provider Obstetrics & Gynecology
DX: R87.612 Low grade squamous intraepithelial lesion on cytologic smear of cervix (LGSIL) (principal)
CPT/HCPCS: 57454

== ENCOUNTER 2025-11-12 13:05 | Outpatient (AMB) | payer OTHER, SELFPAY ==
--- OUTSIDE RECORDS SUMMARY | 2024-07-17 03:00 | XMS_ITS ---
Author Organization [facility] Address [address] [place] [address] Care Team Providers Care Money Counter Name Role Phone Dana Scott MD Primary Care Provider Campos Fregoso [phone] Problems No Known Problems Encounters Encounter Location Date Provider Diagnosis [address] [address] 07/17/2024 Campos Farmer Plan Of Treatment No Information Progress Notes * Chaya JOYADOB: 9 (25 yo F)Acc No.[id number]:07/17/2024 Progress Note Patient: Adrian LANDRUMina Provider: Valeriy Pierre DPM :2000 A ge:24 Y S ex:Female Date:07/17/2024 Address:[address] [place], [place] [id number] Pcp:Dana Scott MD Subjective: * Chief Complaints: * [...] 0 07/17/2024 Generated for Yvonne ward/Dallin/eTransmitting on: 1 01/13/2025 05:15 PM EST
--- NOTE | 2025-11-12 13:05 | MHC.OFFVIS ---
Intake Visit Reasons: Post Colpo Allergies cat dander Allergy (Mild, Verified 10/15/25 08:13) hives cefprozil (CEFPROZIL) Allergy (Unknown, Verified 10/15/25 08:13) HIVES HPI Comments Details: Presenting post colpo for follow-up. The patient is doing well with no complaints. The pathology showed the following: A. Endocervix, curettage: Inflamed endocervical mucosa with squamous metaplasia and reactive changes. B. Cervix, 3 o'clock, biopsy: Inflamed cervical transformation zone mucosa with reactive changes. C. Cervix, 6 o'clock, biopsy: - Low-grade squamous intraepithelial lesion (BOLA 1). - Endocervical epithelium within normal limits. D. Cervix, 11 o'clock, biopsy: Inflamed squamous and endocervical mucosa with reactive changes. E. Cervix, 12 o'clock, biopsy: - Low-grade squamous intraepithelial lesion (BOLA 1). - Endocervical epithelium within normal limits. COMMENT: The findings are concordant with the patient's recent Pap/cytology specimen ([id number]; LSIL with positive HR HPV) - slide reviewed [facility] Surgical History S/P wisdom tooth extraction S/P ACL repair Family History Mother CKD (chronic kidney disease) HTN (hypertension) Father No problems noted. 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 Current occupational exposures/hazards: No Cognitive needs: No Hearing needs: No Vision needs: No Female Reproductive History Menstrual Age of Menarche: 11 Review of Systems Const All systems reviewed & are unremarkable except as noted in HPI and below Reports as per HPI and Reports no additional complaints GI Reports no additional complaints Reports no additional complaints Telehealth Telehealth Telehealth Platform: [facility] Location of provider rendering services: practice address Location of patient: address on file Patient Identification confirmed using: Name, : Yes Telehealth method: video Patient verbally consented to treatment: Yes Patient verbally consented to billing insurance company: Yes Patient informed of any privacy concerns related to visit: Yes Minutes spent on Phone/Video with Pt.: 3 Assessment & Plan Assessment & Plan (1) BOLA I (cervical intraepithelial neoplasia I): Code(s): N87.0 - Mild cervical dysplasia Category: Medical Plan: Discussed with the patient the pathology results of the colposcopy biopsies & endocervical curettage ( mild dysplasia-BOLA 1). Discussed with the patient the sensitivity specificity, positive and negative predictive value in detecting cervical cancer in addition discussed the regression, persistence and progression rates. Recommended co-testing in 12 months, if cytology and or HPV are abnormal will proceed was colposcopy biopsy and endocervical curettage, if lesions gets worse or stays persistent for 2 years will proceed with loop electric excision procedure. Instructions given to the patient to schedule a co test appointment in 1 year. All questions answered the patient verbalized understanding. I spent a total of 20 minutes reviewing the chart, talking to the patient via video and documenting in the medical record. Coding Level of Care Code Tele Est Pt Level 3 (82957) Diagnoses BOLA I (cervical intraepithelial neoplasia I) N87.0
--- OUTSIDE RECORDS SUMMARY | 2025-11-12 17:15 | XMS_ITS | Encounter Summary ---
Author Organization [facility] Address [address] [place] [phone] Phone Care Team Providers Care Community Center Director Name Role Phone Unavailable Primary Care Provider Unavailabl e Encounter Details Date Type Department Care Team (Late st Contact Info) Description 09/12/2014 Documentation [facility] [place] Family [place] [address] Family Medicine, [place] [address] Social History Tobacco Use Types Packs/Day Years [...]
--- OUTSIDE RECORDS SUMMARY | 2025-11-12 17:15 | XMS_ITS | Encounter Summary ---
Author Organization [facility] Address [address] [place] [phone] Phone Care Team Providers Care Typing Pool Supervisor Name Role Phone Unavailable Primary Care Provider Unavailabl e Encounter Details Date Type Department Care Team (Late st Contact Info) Description 04/17/2017 Documentation [facility] [place] [facility] [place], [place] [id number] Family Medicine, Physician [facility] [place] [address] Social History Tobacco Use Types Packs/Day Years [...]
--- OUTSIDE RECORDS SUMMARY | 2025-11-12 17:15 | XMS_ITS | Encounter Summary ---
Author Organization [facility] Address [address] [place] [address] Phone Care Team Providers Care Fire Equipment Operator Name Role Phone Unavailable Primary Care Provider Unavailabl e Encounter Details Date Type Department Care Team (Late st Contact Info) Description 07/13/2017 Conversion Encounter [facility] - [address] [address] Social History Tobacco Use Types Packs/Day Years [...]
--- OUTSIDE RECORDS SUMMARY | 2025-11-12 17:15 | XMS_ITS | Clinical Summary ---
Author Organization [facility] Address [address] [place] [phone] Phone Care Team Providers Care Senior Marketing Coordinator Name Role Phone Unavailable Primary Care Provider [...] - seen for clearance for soccer at [employer]. Sent for EKG Counseling for control, oral [...] of Thrombophilia, No family history of Sudden /NM under age 55, No family history of [...] Completed 05/25/2020, 07/31/2018 Procedures * Due to [place] [employer] law, this organization might not be sharing sensitive test results. Procedure Name Priority Date/Time Associated Diagnosis Comments CHLAMYDIA AND GONORRHEA, AMPLIFIED Routine 05/25/2020 9:10 AM EDT Screening examination for bacterial and spirochetal disease from Last 3 Months or Most Recently Relevant to Health Maintenance Results * Due to [facility] law, this organization might not be sharing sensitive test results. * Chlamydia and Gonorrhoea, Amplified (05/25/2020 9:10 AM EDT) Chlamydia Trachomatis, DNA Probe NEGATIVE (NEG) [facility] Comment: No Chlamydia Trachomatis RNA detected in this patient's sample (REFERENCE RANGE/NORMAL VALUE: NOT DETECTED) Note: This test uses communication professor- mediated amplification method to detect rRNA from C. Trachomatis URINE GC AMP PROBE NEGATIVE (NEG) [facility] Comment: No Neisseria Gonorrhoeae RNA detected in this patient's sample (REFERENCE RANGE/NORMAL VALUE: NOT DETECTED) NOTE: This test uses communication professor-mediated amplification method to detect rRNA from N.Gonorrhoeae. [...] without risk of sexual abuse. Consult the [facility] if needed. Contact phone number . Therapeutic failure or success cannot be determined with the Aptima Combo2 assay since nucleic acid may persist following appropriate antimicrobial therapy. The Centers for Disease Control and Prevention (CDC) recommends confirmatory retesting using culture or a different nucleic acid amplification test when positive results occur, if indicated. Testing performed or reported by [facility], a Service of [facility], [facility] [place] [address] Gautam Mendiola MD, Shim Plug Cutter Urine 05/25/2020 9:10 AM EDT 05/25/2020 8:09 PM EDT us Samara Johnson MD LAB MICROBIOLOGY - GENERAL ORDERABLES Final Result [facility] from Last 3 Months or Most Recently Relevant to Health Maintenance
--- OUTSIDE RECORDS SUMMARY | 2025-11-12 17:15 | XMS_ITS | Encounter Summary ---
Author Organization [facility] Address [address] [place] [phone] Phone Care Team Providers Care Autism Tutor Name Role Phone Unavailable Primary Care Provider Unavailabl e Encounter Details Date Type Department Care Team (Late st Contact Info) Description 07/18/2017 Documentation [facility] [place] Family Medicine [facility] [place], [place] [id number] Family Medicine, Physician [facility] [place] [address] Social History Tobacco Use Types Packs/Day Years [...]
--- OUTSIDE RECORDS SUMMARY | 2025-11-12 17:15 | XMS_ITS | Encounter Summary ---
Author Organization [facility] Address [address] [place] [address] Phone Care Team Providers Care Valet Service Attendant Name Role Phone Unavailable Primary Care Provider Unavailabl e Reason for Visit * Reason Comments Med Refill Encounter Details Date Type Department Care Team (Late st Contact Info) Description 10/18/2017 Refill [facility] [place] [address] [place] [address] Samara Johnson MD [address] [place] [address] Counseling for control, oral contraceptives Social History [...]
--- OUTSIDE RECORDS SUMMARY | 2025-11-12 17:15 | XMS_ITS | Patient Health Record ---
Author Organization [facility] Address [address] [place] [address] Care Team Providers Care Receiving Coordinator Name Role Phone Dana Scott MD Primary Care Provider Campos Fregoso Unavailable [phone] Allergies Allergen (clinical drug ingredient) Drug/Non Drug [...] Insured Coverage Start Date Coverage End Date [facility] [address] [place] [address] [phone] [id number] Chaya Joya Self - patient is the insured Medical (General) History Medical History History ICD Code asthma Arthritis Broken bones covid-19 Joint implants/screws Surgical History Surgery Date(Month/Year) ACL MENISCUS RIGHT KNEE 08/2013
== END 2025-11-12 13:39 | disposition home or self-care (01) ==
LOC: HO.HWS 13:05
PROVIDERS: PCP Nurse Practitioner Family; Visit Provider Obstetrics & Gynecology
DX: N87.0 Mild cervical dysplasia (principal)
CPT/HCPCS: 99213